=== PATIENT | female | born 1980 | race Caucasian/White ===

== ENCOUNTER → 2024-06-29 | Day surgery (SDC) | payer OTHER ==
[2024-06-13 10:06] VITALS: BP 115/78
[2024-06-13 10:27] LABS: HEMATOCRIT 37.1 % (36.0-45.00); HEMOGLOBIN 12.5 g/dL (12.0-15.00); MEAN CELL VOLUME 89.1 fL (80.00-100.00); MEAN CORPUSCULAR HGB CONC 33.6 g/dl (32.0-36.0); PLATELET COUNT 295 K/uL (150-450); RED BLOOD COUNT 4.16 M/uL (4.00-6.00)
[2024-06-13 10:29] LABS: PH,URINE 7.5 (5.0-8.0); URINE APPEARANCE Cloudy; URINE BILIRRUBIN Negative (NEGATIVE); URINE BLOOD Negative; URINE COLOR Yellow; URINE GLUCOSE Negative (NEGATIVE); URINE KETONE Negative (NEGATIVE); URINE LEUKOCYTE Negative; URINE NITRATE Negative; URINE PROTEIN Negative (NEGATIVE); URINE UROBILINOGEN 0.2 E.U./dl
[2024-06-13 10:34] LABS: URINE BACTERIA 161.2 uL (0.0-1933); URINE EPITHELIAL CELLS 8.3 uL (0.0-38.8); URINE RBC 51.7 uL (0.0-20.8); URINE WBC 7.1 uL (0.0-23.2)
[2024-06-13 10:56] LABS: INR 1.05; PARTIAL THROMBOPLASTIN TIME 29.6 SECONDS (22.0-34.0); PROTHROMBIN TIME 11.4 SECONDS (9.0-11.5)
[2024-06-13 11:29] LABS: ALBUMIN 4.3 gm/dL (3.4-5.0); BILIRUBIN TOTAL 0.63 mg/dL (0.3-1.2); CALCIUM 9.7 mg/dL (8.5-10.1); CREATININE SERUM 0.46 mg/dL (0.55-1.02); GFR 148.26; GLOBULINA 3.8 G/DL (2.4-3.5); POTASSIUM 4.33 mEq/L (3.5-5.1); TOTAL PROTEIN 8.1 gm/dL (6.4-8.2)
[~2024-06-29] VITALS: Ht 162.6 cm; Wt 66.2 kg
[~2024-06-29] MED LIST: BUPIVACAINE HCL 30 ML VIAL IJ ONE; CEFAZOLIN SODIUM 1,000 MG VIAL IJ ONE; CLINDAMYCIN PHOSPHATE 150 MG/ML (900mg) IV ONE; DOCUSATE SODIU100 MG PO; GENTAMICIN SULFATE 40 MG/ML VIAL IR ONE; IBUPROFEN400 MG PO; INTESTINEX680 M1 PO; MACROBID 100 M100 MG PO; MORPHINE SULFATE 4 MG/ML VIAL IV PRN; Mylicon 125MG PO; NEURONTIN300 MG PO; ONDANSETRON HCL 2 MG/ML VIAL IV PRN; POVIDONE-IODINE 118 ML BOTT TOP ONE; POVIDONE-IODINE SCRUB 118 ML BOTT TOP ONE; PRENATAL MULTI1 EAC3 PO; SUGAMMADEX SODIUM 200 MG/2 ML VIAL IV ONE
== END | disposition home or self-care (01) ==
LOC: ADM 06-13 11:00 → CIR.AMB 05:53
PROVIDERS: ATTEND Surgery
DX: K42.9 Umbilical hernia without obstruction or gangrene (principal); K65.4 Sclerosing mesenteritis; E65 Localized adiposity; E88.1 Lipodystrophy, not elsewhere classified; M62.08 Separation of muscle (nontraumatic), other site